=== PATIENT | female | born 1975 | race African-American/Black ===

== ENCOUNTER 2017-03-17 09:01 | Emergency (ER) | payer OTHER ==
[2017-03-17 09:14] VITALS: BP 123/79; TEMP 98.6; BMI 24.0
[2017-03-17] MEDS ORDERED: KETOROLAC TROMETHAMINE 60 MG/2 ML VIAL IM ONE (10:13)
[2017-03-17] MEDS ORDERED: KETOROLAC TROMETHAMINE 30 MG/1 ML VIAL ONE (10:14)
--- NOTE | 2017-03-17 11:08 | PDOC ---
History of Present Illness - General Chief Complaint: Back Pain Stated Complaint: BACK PAIN Time Seen by Provider: 03/17/17 09:43 History Source: Patient Exam Limitations: No Limitations - History of Present Illness Initial Comments: 03/17/17 11:09 41-year-old female presents to the ED with complaints of right upper back pain upon awakening this morning. Patient states pain is worsened with movement and does not radiate to her chest abdomen or lower back. Patient denies history of low back pain upper back pain or cervical disorders. Patient states did not take anything for pain and describes the pain as sharp and intermittent Occurred: reports: this morning Severity: reports: mild, moderate Pain Location: reports: back Method of Injury: Yes: unknown Associated Symptoms (Fall): denies symptoms Past History - Past Medical History Allergies/Adverse Reactions: Allergies Allergy/AdvReac Type Severity Reaction Status Date / Time No Known Allergies Allergy Verified 03/17/17 09:06 Home Medications: Ambulatory Orders Cyclobenzaprine HCl [Flexeril 10 mg] 5 mg PO BID PRN #12 tablet 03/17/17 Ibuprofen [Motrin -] 600 mg PO TID PRN #21 tablet 03/17/17 Other medical history: none - Psycho/Social/Smoking Cessation Hx Anxiety: No Suicidal Ideation: No Smoking History: Never smoked Have you smoked in the past 12 months: No Information on smoking cessation initiated: No Hx Alcohol Use: No Drug/Substance Use Hx: No Substance Use Type: None Patient Lives Alone: No Review of Systems - Review of Systems Able to Perform ROS?: Yes Constitutional: No: Symptoms Reported Respiratory: No: Symptoms reported Cardiac (ROS): No: Symptoms Reported Musculoskeletal: Yes: Muscle Pain (right) Integumentary: No: Symptoms Reported Neurological: No: Symptoms reported Hematologic/Lymphatic: No: Symptoms Reported *Physical Exam - Vital Signs Last Vital Signs Temp Pulse Resp BP Pulse Ox 98.6 F 57 L 18 123/79 100 03/17/17 09:08 03/17/17 09:08 03/17/17 09:08 03/17/17 09:08 03/17/17 09:08 - Physical Exam General Appearance: Yes: Nourished, Appropriately Dressed. No: Apparent Distress Musculoskeletal: positive: Muscle Spasm (rigth trapezuis). negative: CVA Tenderness, Vertebral Tenderness Integumentary: positive: Normal Color, Warm, Moist. negative: Erythema, Rash, Swelling, Ecchymosis ED Treatment Course - Medications Given in the ED: ED Medications Discontinued Medications Generic Name Dose Route Start Last Admin Trade Name Elda PRN Reason Stop Dose Admin Ketorolac Tromethamine 60 mg 03/17/17 10:13 03/17/17 10:19 Toradol Injection - IM 03/17/17 10:14 60 mg ONCE ONE Administration Medical Decision Making - Medical Decision Making 03/17/17 11:13 Patient complaining of right trapezius pain worsened with movement and deep breathing. Patient states awoke with discomfort. Patient denies any change in activity, recent travel, recent illness, or surgery. Patient other complaints at this time. Patient examined point tenderness of the right trapezius at the mid scapular line. Patient initially ordered for Toradol which she responded well with. Patient be discharged with Motrin and Flexeril. *DC/Admit/Observation/Transfer Diagnosis at time of Disposition: Trapezius muscle spasm Trapezius muscle strain Qualifiers: Encounter type: initial encounter Laterality: right Qualified Code(s): S46.811A - Strain of other muscles, fascia and tendons at shoulder and upper arm level, right arm, initial encounter - Discharge Dispostion Disposition: HOME Condition at time of disposition: Improved - Prescriptions Prescriptions: Cyclobenzaprine HCl [Flexeril 10 mg] 5 mg PO BID PRN #12 tablet PRN Reason: Back Pain Ibuprofen [Motrin -] 600 mg PO TID PRN #21 tablet PRN Reason: Pain - Referrals Referrals: Radhika Ribeiro MD [Primary Care Provider] - - Patient Instructions Printed Discharge Instructions: DI for Back Spasm Additional Instructions: Please continue to take Motrin or Flexeril at home. Apply heat to the affected area . If symptoms continue greater than 3 days consider follow-up with her PCP and/or return to ED.
[2017-03-17 11:10] VITALS: PULSE 54
== END 2017-03-17 11:16 | disposition home or self-care (01) ==
LOC: JERFT 09:01
PROC: 3E0233Z Introduction of Anti-inflammatory into Muscle, Percutaneous Approach (ICD-10-PCS; principal; 2017-03-17)
DX: S46.811A Strain of other muscles, fascia and tendons at shoulder and upper arm level, right arm, initial encounter (principal); M62.830 Muscle spasm of back; X58.XXXA Exposure to other specified factors, initial encounter; Y93.89 Activity, other specified; Y92.032 Bedroom in apartment as the place of occurrence of the external cause
CPT/HCPCS: 96372; 99281-25

== ENCOUNTER 2017-11-04 19:05 | Emergency (ER) | payer OTHER ==
[2017-11-04 19:26] VITALS: BP 125/78; PULSE 70; TEMP 98.8; BMI 26.5
[2017-11-04] MEDS ORDERED: diazePAM 5 MG TABLET PO ONE (20:04)
[2017-11-04] MEDS ORDERED: KETOROLAC TROMETHAMINE 30 MG/1 ML VIAL IM ONE (20:04)
--- NOTE | 2017-11-04 20:08 | PDOC ---
History of Present Illness - General Chief Complaint: Pain Stated Complaint: NECK PAIN Time Seen by Provider: 11/04/17 19:57 History Source: Patient Exam Limitations: No Limitations - History of Present Illness Initial Comments: 11/04/17 20:11 Is a 42-year-old woman without significant past medical history presents emergency Department with right upper back pain status post working out on 10/30. Patient states she was doing sit ups and was pulling on her neck throughout her workout that they. 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 She did trying icy hot and other topical modalities with minimal relief. Patient has been taking Motrin with moderate relief of pain. Past History - Past Medical History Allergies/Adverse Reactions: Allergies Allergy/AdvReac Type Severity Reaction Status Date / Time No Known Allergies Allergy Verified 11/04/17 19:26 Home Medications: Ambulatory Orders Cyclobenzaprine HCl [Flexeril 10 mg] 5 mg PO BID PRN #12 tablet 03/17/17 Ibuprofen [Motrin -] 600 mg PO TID PRN #21 tablet 03/17/17 Methocarbamol [Robaxin -] 1,500 mg PO Q8H #21 tablet 11/04/17 - Suicide/Smoking/Psychosocial Hx Smoking History: Never smoked Have you smoked in the past 12 months: No Information on smoking cessation initiated: No Hx Alcohol Use: No Drug/Substance Use Hx: No Substance Use Type: None Review of Systems - Review of Systems Able to Perform ROS?: Yes Is the patient limited Hungarian proficient: No Constitutional: No: Symptoms Reported HEENTM: No: Symptoms Reported Respiratory: No: Symptoms reported Cardiac (ROS): No: Symptoms Reported ABD/GI: No: Symptoms Reported : No: Symptoms Reported Musculoskeletal: Yes: See HPI Integumentary: No: Symptoms Reported Neurological: No: Symptoms reported Endocrine: No: Symptoms Reported *Physical Exam - Vital Signs Last Vital Signs Temp Pulse Resp BP Pulse Ox 98.8 F 70 18 125/78 100 11/04/17 19:22 11/04/17 19:22 11/04/17 19:22 11/04/17 19:22 11/04/17 19:22 - Physical Exam General Appearance: Yes: Appropriately Dressed. No: Apparent Distress HEENT: positive: Normal ENT Inspection Neck: positive: Trachea midline, Supple Respiratory/Chest: positive: Lungs Clear, Normal Breath Sounds. negative: Respiratory Distress, Accessory Muscle Use Cardiovascular: positive: Regular Rhythm, Regular Rate. negative: Murmur Gastrointestinal/Abdominal: positive: Normal Bowel Sounds, Soft. negative: Tender Musculoskeletal: positive: Normal Inspection, Muscle Spasm (right trapezius). negative: CVA Tenderness Extremity: positive: Normal Capillary Refill, Normal Inspection, Normal Range of Motion Integumentary: positive: Normal Color, Dry, Warm Neurologic: positive: Alert, Normal Response, Motor Strength 5/5 Medical Decision Making - Medical Decision Making 11/04/17 20:10 A/P: 42-year-old woman with right trapezius pain status post working out Palpable muscle spasm noted in the right trapezius Full active range of motion to the right shoulder Full active range of motion of the neck Toradal 30 mg IM now Valium 5 mg Discharge *DC/Admit/Observation/Transfer Diagnosis at time of Disposition: Trapezius muscle spasm - Discharge Dispostion Disposition: HOME Condition at time of disposition: Stable Admit: No - Prescriptions Prescriptions: Methocarbamol [Robaxin -] 1,500 mg PO Q8H #21 tablet - Referrals - Patient Instructions Additional Instructions: Apply warm moist heat to affected areas- warm baths are a good way to accomplish this. Take Robaxin 1500 mg 3 times a day as needed for pain. Avoid any heavy lifting or strenuous activity until symptoms resolve. Return to emergency for for worsening pain, headaches or any other concerns. Thank you very much for trismus to provide emergent care needs. - Post Discharge Activity Forms/Work/School Notes: Back to Work
[2017-11-04] MEDS ORDERED: KETOROLAC TROMETHAMINE 30 MG/1 ML VIAL ONE (20:14)
[2017-11-04] MEDS ORDERED: diazePAM 5 MG TABLET ONE (20:14)
== END 2017-11-04 20:24 | disposition home or self-care (01) ==
LOC: JERFT 19:05
PROC: 3E0233Z Introduction of Anti-inflammatory into Muscle, Percutaneous Approach (ICD-10-PCS; principal; 2017-11-04)
DX: M62.838 Other muscle spasm (principal); X50.3XXA Overexertion from repetitive movements, initial encounter; Y93.B2 Activity, push-ups, pull-ups, sit-ups; Y92.89 Other specified places as the place of occurrence of the external cause; Y99.8 Other external cause status
CPT/HCPCS: 96372; 99281-25

== ENCOUNTER 2017-11-12 18:20 | Emergency (ER) | payer OTHER ==
--- NOTE | 2017-11-12 18:39 | PDOC ---
Rapid Medical Evaluation Time Seen by Provider: 11/12/17 18:36 Medical Evaluation: Allergies Allergy/AdvReac Type Severity Reaction Status Date / Time No Known Allergies Allergy Verified 11/04/17 19:26 11/12/17 18:36 Pt c/o: rt shoulder/ neck pain over 1 week, seen here for the same, no dental or ear pain, does complain of tingling to arm intermittently Pt on brief exam: full rom, vss, tender to dital rt trapezius/shoulder Pt ordered for: rt shoulder xray Pt to proceed to the ED Discharge Disposition - Diagnosis Shoulder pain, right - Referrals - Patient Instructions - Post Discharge Activity
[2017-11-12 18:40] VITALS: BP 149/76; PULSE 73; TEMP 98; BMI 26.5
--- NOTE | 2017-11-12 19:43 | PDOC ---
History of Present Illness - History of Present Illness Initial Comments: 11/12/17 20:09 Patient is a 42F, with no significant PMHx, who returns to the ER for right shoulder pain for 2 weeks . Patient states that she was here on 10/30 because she believes she did something to her shoulder when working out and when she went to reach for her coat she felt a sudden sharp pain in her shoulder. She states that the pain is continuous, travels down her arm, and feels like pins and needles. She was given Methocarbamol 750mg but states that it did nothing to relieve the pain. She states she has tried taking ibuprofen and topical gel with temporary relief. She was told to come back if the pain persists. She also notes the pain travels to her neck as well. <Carmelina Omer - Last Filed: 11/12/17 20:09> <Maryse Davis - Last Filed: 11/13/17 10:35> - General Chief Complaint: Head/Neck problem Stated Complaint: PAIN Time Seen by Provider: 11/12/17 18:36 Past History <Carmelina Omer - Last Filed: 11/12/17 20:09> - Past Medical History COPD: No Other medical history: DENIES. - Suicide/Smoking/Psychosocial Hx Smoking History: Never smoked Have you smoked in the past 12 months: No Hx Alcohol Use: No Drug/Substance Use Hx: No Substance Use Type: None <Maryse Davis - Last Filed: 11/13/17 10:35> - Past Medical History Allergies/Adverse Reactions: Allergies Allergy/AdvReac Type Severity Reaction Status Date / Time No Known Allergies Allergy Verified 11/12/17 18:37 Home Medications: Ambulatory Orders Cyclobenzaprine HCl [Flexeril -] 10 mg PO HS #10 tablet 11/12/17 Methylprednisolone [Medrol Dose Merrill] 4 mg PO ASDIR #21 tablet 11/12/17 Review of Systems - Review of Systems Comments:: 11/12/17 20:09 GENERAL/CONSTITUTIONAL: No fever or chills. No weakness. HEAD, EYES, EARS, NOSE AND THROAT: No change in vision. No ear pain or discharge. No sore throat. GASTROINTESTINAL: No nausea, vomiting, diarrhea or constipation. GENITOURINARY: No dysuria, frequency, or change in urination. CARDIOVASCULAR: No chest pain or shortness of breath. RESPIRATORY: No cough, wheezing, or hemoptysis. MUSCULOSKELETAL: +right shoulder pain. +right sided neck pain. SKIN: No rash NEUROLOGIC: +intermittent numbness and tingling down right arm. No headache, vertigo, loss of consciousness, or change in strength/sensation. ENDOCRINE: No increased thirst. No abnormal weight change. HEMATOLOGIC/LYMPHATIC: No anemia, easy bleeding, or history of blood clots. ALLERGIC/IMMUNOLOGIC: No hives or skin allergy. <Carmelina Omer - Last Filed: 11/12/17 20:09> *Physical Exam - Vital Signs Last Vital Signs Temp Pulse Resp BP Pulse Ox 98 F 73 19 149/76 100 11/12/17 18:37 11/12/17 18:37 11/12/17 18:37 11/12/17 18:37 11/12/17 18:37 - Physical Exam Comments: 11/12/17 20:11 GENERAL: Awake, alert, and fully oriented, in no acute distress HEAD: No signs of trauma EYES: PERRLA, EOMI, sclera anicteric, conjunctiva clear ENT: Auricles normal inspection, hearing grossly normal, nares patent, oropharynx clear without exudates. Moist mucosa NECK: Normal ROM, supple, no lymphadenopathy, JVD, or masses LUNGS: Breath sounds equal, clear to auscultation bilaterally. No wheezes, and no crackles HEART: Regular rate and rhythm, normal S1 and S2, no murmurs, rubs or gallops ABDOMEN: Soft, nontender, normoactive bowel sounds. No guarding, no rebound. No masses EXTREMITIES: Negative: drop arm , empty can apprehension, speed's test. Normal range of motion, no edema. No clubbing or cyanosis. No cords, erythema, or tenderness NEUROLOGICAL: Cranial nerves II through XII grossly intact. Normal speech, normal gait SKIN: Warm, Dry, normal turgor, no rashes or lesions noted. <Carmelina Omer - Last Filed: 11/12/17 20:09> - Vital Signs Last Vital Signs Temp Pulse Resp BP Pulse Ox 98 F 73 19 149/76 100 11/12/17 18:37 11/12/17 18:37 11/12/17 18:37 11/12/17 18:37 11/12/17 18:37 <Maryse Davis - Last Filed: 11/13/17 10:35> ED Treatment Course - Medications Given in the ED: ED Medications Discontinued Medications Generic Name Dose Route Start Last Admin Trade Name Elda PRN Reason Stop Dose Admin Ketorolac Tromethamine 60 mg 11/12/17 19:44 11/12/17 19:50 Toradol Injection - IM 11/12/17 19:45 60 mg ONCE ONE Administration <Carmelina Omer - Last Filed: 11/12/17 20:09> Medical Decision Making - Medical Decision Making 11/12/17 19:47 A portion of this note was documented by scribe services under my direction. I have reviewed the details of the note, within reason, and agree with the documentation with the following case summary and management plan written by me. Pt. is a 42 y/o F who presents to the ED with continued R shoulder pain. Seen on 11/04/17. Pt. describes the pain as pins and needles that run down her arm and up to her R neck. ROM intact of R shoulder and R neck. Most likely a cervical radiculopathy. Will change medications at this time. Ortho referral given. Return precautions give. Pt. understands all d/c instructions and all questions were answered. <Maryse Davis - Last Filed: 11/13/17 10:35> *DC/Admit/Observation/Transfer - Attestations Scribe Attestion: 11/12/17 20:15 Documentation prepared by Carmelina Omer, acting as emergency medical technician for TRAY Burr. <Carmelina Omer - Last Filed: 11/12/17 20:09> - Discharge Dispostion Admit: No <Maryse Davis - Last Filed: 11/13/17 10:35> Diagnosis at time of Disposition: Cervical radicular pain Shoulder pain, right Qualifiers: Chronicity: acute Qualified Code(s): M25.511 - Pain in right shoulder - Discharge Dispostion Disposition: HOME Condition at time of disposition: Stable - Prescriptions Prescriptions: Cyclobenzaprine HCl [Flexeril -] 10 mg PO HS #10 tablet Methylprednisolone [Medrol Dose Merrill] 4 mg PO ASDIR #21 tablet - Referrals Referrals: Yinka Phillips MD [Staff Physician] - - Patient Instructions Printed Discharge Instructions: DI for Cervical Radiculopathy Additional Instructions: You have nerve pain most likely due to a muscle spasm. Please take the steroids pack as directed. Please take the Flexeril at night. Do not drive after taking this medication as it may make you sleepy. You may take ibuprofen or Tylenol as needed for additional pain. You may use heating pads and icy hot to the area to help with the pain. Please follow-up with orthopedics this week. Referral has been provided for you. Please avoid lifting heavy objects until your pain resolves. Return to the emergency department if you have worsening pain, weakness in the arm, or have any changes in your symptoms. - Post Discharge Activity Forms/Work/School Notes: Back to Work
[2017-11-12] MEDS ORDERED: KETOROLAC TROMETHAMINE 60 MG/2 ML VIAL IM ONE (19:44)
[2017-11-12] MEDS ORDERED: KETOROLAC TROMETHAMINE 60 MG/2 ML VIAL ONE (19:47)
== END 2017-11-12 19:54 | disposition home or self-care (01) ==
LOC: JERFT 18:20
PROC: 3E0233Z Introduction of Anti-inflammatory into Muscle, Percutaneous Approach (ICD-10-PCS; principal; 2017-11-12)
DX: M54.12 Radiculopathy, cervical region (principal)
CPT/HCPCS: 73030-TC-RT-FY; 96372; 99281-25

== ENCOUNTER 2017-12-26 18:25 | Emergency (ER) | payer OTHER ==
[2017-12-26 18:30] VITALS: BP 119/79; PULSE 68; TEMP 98.1; BMI 27.4
--- NOTE | 2017-12-26 19:11 | PDOC ---
History of Present Illness - General Chief Complaint: Pain Stated Complaint: PAIN Time Seen by Provider: 12/26/17 18:37 History Source: Patient Exam Limitations: No Limitations - History of Present Illness Initial Comments: 12/26/17 19:27 Chief complaint: Neck and shoulder pain Patient is a healthy 42-year-old female who was seen in the ER 3 times in October for similar complaints of right shoulder and neck pain. She was treated, had an x-ray and followed up with orthopedist. Patient states it was better and now has gotten worse and came to the ER because she can't sleep at night. She has an appointment with the orthopedist on Saturday. She continues to have on and off numbness and tingling none now. 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 GENERAL/CONSTITUTIONAL: No fever, weakness. dizziness HEAD, EYES, EARS, NOSE AND THROAT: No change in vision. No ear pain or discharge. No sore throat. CARDIOVASCULAR: No chest pain RESPIRATORY: No shortness of breath or cough GASTROINTESTINAL: No pain, nausea, vomiting, diarrhea or constipation GENITOURINARY: No dysuria MUSCULOSKELETAL: No neck or back pain SKIN: No rash NEUROLOGIC: No headache, vertigo, loss of consciousness, or loss of sensation. GENERAL: The patient is awake, alert, and fully oriented, in no acute distress. HEAD: Normal with no signs of trauma. EYES: Pupils equal, round and reactive to light, sclera anicteric, conjunctiva clear. ENT: pharynx: no erythema, no exudate, uvula midline NECK: supple CHEST: clear, nontender, rr ABD: soft, nontender EXTREMITIES: Normal range of motion, no edema. NEURO: Mental status: The patient is oriented x3. Cranial nerves: Cranial nerves II through XII are intact Motor: The upper extremities are 5 over 5 in all muscle groups. The lower extremities are 5 over 5 in all muscle groups. Sensation: Sensation is intact to light touch throughout. Cerebellar: [id number] is normal in both upper extremities. Heel-knee- rogers is normal in both lower extremities. Gait: Normal.Tandem gait is normal. SKIN: Warm, Dry Past History - Past Medical History Allergies/Adverse Reactions: Allergies Allergy/AdvReac Type Severity Reaction Status Date / Time No Known Allergies Allergy Verified 12/26/17 18:26 Home Medications: Ambulatory Orders Meloxicam [Mobic] 15 mg PO DAILY #14 tablet 12/26/17 Oxycodone HCl/Acetaminophen [Percocet 5-325 mg Tablet] 1 tab PO Q6H #20 tablet MDD 4 12/26/17 COPD: No DVT: No - Suicide/Smoking/Psychosocial Hx Smoking History: Never smoked Have you smoked in the past 12 months: No Information on smoking cessation initiated: No Hx Alcohol Use: No Drug/Substance Use Hx: No Substance Use Type: None *Physical Exam - Vital Signs Last Vital Signs Temp Pulse Resp BP Pulse Ox 98.1 F 68 18 119/79 100 12/26/17 18:27 12/26/17 18:27 12/26/17 18:27 12/26/17 18:27 12/26/17 18:27 Medical Decision Making - Medical Decision Making 12/26/17 19:29 42-year-old female with no significant medical problems with ongoing issues with cervical radiculopathy. Patient had x-ray prior. Had gotten worse. Strength and sensation is intact in both upper extremities she has pain when she tries to lift the arm more than 90. She also had a shoulder x-ray prior. No indication for further workup or imaging. Patient has appointment with orthopedist on Saturday. She has had Robaxin, Flexeril and steroids prior. Will give mold back and a few Percocet since patient is having great difficulty sleeping. Patient was also told to avoid lifting and to also evaluate her pillows and sleeping and how that possibly is contributing. *DC/Admit/Observation/Transfer Diagnosis at time of Disposition: Cervical radicular pain - Discharge Dispostion Disposition: HOME Condition at time of disposition: Stable Decision to Admit order: No - Prescriptions Prescriptions: Meloxicam [Mobic] 15 mg PO DAILY #14 tablet Oxycodone HCl/Acetaminophen [Percocet 5-325 mg Tablet] 1 tab PO Q6H #20 tablet MDD 4 - Referrals Referrals: Ynika Phillips MD [Staff Physician] - - Patient Instructions Printed Discharge Instructions: DI for Cervical Radiculopathy Additional Instructions: No heavy lifting or bending Apply ice to the area 20 minutes every 2 hours for the next 2 days take meloxicam 15 mg once daily for pain. If still in pain he can also take Percocet one to 2 tablets every 6 hours. the percocet is best taken at night before sleep Return to the nearest ER if numbness, weakness, severe pain, problems with urinating or having bowel movements. Call orthopedist today for an appointment for further evaluation - Post Discharge Activity
== END 2017-12-26 19:22 | disposition home or self-care (01) ==
LOC: JERFT 18:25
DX: M54.12 Radiculopathy, cervical region (principal)
CPT/HCPCS: 99281-25

== ENCOUNTER 2018-06-13 14:57 | Emergency (ER) | payer OTHER ==
[2018-06-13] MEDS ORDERED: TETANUS AND DIPHTHERIA TOXOID 0.5 ML DISP.SYRIN IM ONE (15:27)
[2018-06-13 15:29] VITALS: BP 116/70; PULSE 77; TEMP 98.6; BMI 25.6
--- NOTE | 2018-06-13 15:29 | PDOC ---
Rapid Medical Evaluation Chief Complaint: Pain Time Seen by Provider: 06/13/18 15:24 Medical Evaluation: Allergies Allergy/AdvReac Type Severity Reaction Status Date / Time No Known Allergies Allergy Verified 12/26/17 18:26 06/13/18 15:26 43 year old female lefy 5th finger nail caught in the door and nail lifted of the nail bed. last tetanus unknown Pe: left 5th finger nail with minimal bleeding A: nail avulsion P: patient to fast track for further management of care/ Discharge Disposition - Diagnosis Nail avulsion, finger Qualifiers: Encounter type: initial encounter Qualified Code(s): S61.309A - Unspecified open wound of unspecified finger with damage to nail, initial encounter - Referrals - Patient Instructions - Post Discharge Activity
[2018-06-13] MEDS ORDERED: DIPHTH,PERTUSS(ACELL),TET 0.5 ML DISP.SYRIN IM ONE (16:23)
--- NOTE | 2018-06-13 16:27 | PDOC ---
History of Present Illness - General Chief Complaint: Injury Stated Complaint: FINGER INJURY Time Seen by Provider: 06/13/18 15:24 History Source: Patient Exam Limitations: No Limitations - History of Present Illness Initial Comments: 06/13/18 16:24 pt jammed her left pinky fingernail in a door today, bending back the artificial nail. Past History - Past Medical History Allergies/Adverse Reactions: Allergies Allergy/AdvReac Type Severity Reaction Status Date / Time No Known Allergies Allergy Verified 06/13/18 15:24 Home Medications: Ambulatory Orders NK [No Known Home Medication] 06/13/18 COPD: No DVT: No Other medical history: DENIES. - Surgical History Abdominal Surgery: Yes (HERNIA REPAIR X2) - Suicide/Smoking/Psychosocial Hx Smoking History: Never smoked Have you smoked in the past 12 months: No Hx Alcohol Use: No Drug/Substance Use Hx: No Substance Use Type: None Review of Systems - Review of Systems Able to Perform ROS?: Yes Is the patient limited Marshallese proficient: No Integumentary: Yes: Symptoms Reported *Physical Exam - Vital Signs Last Vital Signs Temp Pulse Resp BP Pulse Ox 98.6 F 77 19 116/70 98 06/13/18 15:25 06/13/18 15:25 06/13/18 15:25 06/13/18 15:25 06/13/18 15:25 - Physical Exam General Appearance: Yes: Nourished, Appropriately Dressed HEENT: positive: EOMI, AB Neck: positive: Supple. negative: Tender Respiratory/Chest: positive: Lungs Clear, Normal Breath Sounds. negative: Chest Tender Cardiovascular: positive: Regular Rhythm, Regular Rate Extremity: positive: Normal Capillary Refill, Normal Inspection, Tender (left 5th digit with articial nail intact, dried blood under the nail, cuticle is intact no bleeding ) Integumentary: positive: Normal Color, Dry, Warm Neurologic: positive: Fully Oriented, Alert, Normal Mood/Affect, Normal Response , Motor Strength 5/5 Procedures - Additional Procedures Additional Procedures: other (finger soaked in betadine, bulky finger wrap placed) *DC/Admit/Observation/Transfer Diagnosis at time of Disposition: Nail avulsion, finger Qualifiers: Encounter type: initial encounter Qualified Code(s): S61.309A - Unspecified open wound of unspecified finger with damage to nail, initial encounter - Discharge Dispostion Disposition: HOME Condition at time of disposition: Good - Referrals - Patient Instructions Additional Instructions: keep covered, trim the nail do not remove the nail it will fall off on its own no more artificial nails until healed take motrin for pain(over the counter ibuprofen, motrin or advil) - Post Discharge Activity
== END 2018-06-13 16:48 | disposition home or self-care (01) ==
LOC: JERFT 14:57
PROC: 3E0234Z Introduction of Serum, Toxoid and Vaccine into Muscle, Percutaneous Approach (ICD-10-PCS; principal; 2018-06-13)
DX: S61.307A Unspecified open wound of left little finger with damage to nail, initial encounter (principal); W22.8XXA Striking against or struck by other objects, initial encounter; Y93.89 Activity, other specified; Y92.89 Other specified places as the place of occurrence of the external cause
CPT/HCPCS: 90471; 90715; 99281-25

== ENCOUNTER 2020-08-07 13:03 | Emergency (ER) | payer OTHER ==
[2020-08-07 13:14] VITALS: BP 122/74; PULSE 61; TEMP 97; BMI 27.4
[2020-08-07] MEDS ORDERED: IBUPROFEN 600 MG TABLET (FP) PO ONE ×2 (14:07→14:09)
[2020-08-07 14:51] LABS: BASO % 0.7 % (0-2.0); EOS % 2.9 % (0-4.5); HEMATOCRIT 35.3 % (32.4-45.2); HEMOGLOBIN 11.5 GM/dL (10.7-15.3); LYMPH % 36.5 % (8-40); MCHC 32.5 g/dl (32.0-36.0); MONO % 8.3 % (3.8-10.2); NEUT % 51.6 % (42.8-82.8); PLATELET COUNT 270 K/MM3 (134-434); RBC 4.25 M/mm3 (3.60-5.2); RDW 17.1 % (11.6-15.6); WHITE BLOOD COUNT 5.7 K/mm3 (4.0-10.0)
[2020-08-07 15:17] LABS: ALBUMIN 3.5 g/dl (3.4-5.0); BLOOD UREA NITROGEN 9.4 mg/dL (7-18); CALCIUM 8.7 mg/dL (8.5-10.1)
[2020-08-07 15:21] LABS: CREATININE 1.1 mg/dL (0.55-1.3)
[2020-08-07 15:22] LABS: BILIRUBIN,TOTAL 0.3 mg/dL (0.2-1); TOT PROT 7.8 g/dl (6.4-8.2)
== END 2020-08-07 15:56 | disposition home or self-care (01) ==
LOC: JERFT 13:03
DX: R59.9 Enlarged lymph nodes, unspecified (principal)
CPT/HCPCS: 36415; 76536-TC; 80053; 85025; 99284-25

== ENCOUNTER 2021-01-21 04:32 | Emergency (ER) | payer OTHER ==
[2021-01-21 04:46] VITALS: BP 127/78; PULSE 71; TEMP 98.2; BMI 26.2
[2021-01-21] MEDS ORDERED: SODIUM CHLORIDE 0.9% 500 ML INFUS.BAG IV ONE (05:13)
[2021-01-21] MEDS ORDERED: morphine SULFATE 4 MG/ML VIAL IVPUSH ONE (05:13)
[2021-01-21] MEDS ORDERED: morphine SULFATE 4 MG/ML VIAL ONE (05:22)
[2021-01-21 05:53] LABS: BASO % 0.2 % (0-2.0); EOS % 0.8 % (0-4.5); HEMATOCRIT 35.9 % (32.4-45.2); HEMOGLOBIN 11.8 GM/dL (10.7-15.3); LYMPH % 15.4 % (8-40); MCH 26.2 pg (25.7-33.7); MCHC 32.9 g/dl (32.0-36.0); MEAN CELL VOLUME 79.8 fl (80-96); MEAN PLT VOLUME 8.9 fl (7.5-11.1); MONO % 5.3 % (3.8-10.2); NEUT % 78.3 % (42.8-82.8); PLATELET COUNT 252 10^3/uL (134-434); RDW 17.8 % (11.6-15.6); WHITE BLOOD COUNT 6.9 K/mm3 (4.0-10.0)
[2021-01-21 06:12] LABS: CHLORIDE 105 mmol/L (98-107); SODIUM 139 mmol/L (136-145)
[2021-01-21 06:14] LABS: ALBUMIN 3.8 g/dl (3.4-5.0); ANION GAP 7 MMOL/L (8-16); BLOOD UREA NITROGEN 15.6 mg/dL (7-18); CALCIUM 9.1 mg/dL (8.5-10.1); CO2 26 mmol/L (21-32); GLUCOSE,RANDOM 107 mg/dL (74-106); LIPASE 131 U/L (73-393)
[2021-01-21 06:17] LABS: CREATININE 0.9 mg/dL (0.55-1.3); SGOT/AST 21 U/L (15-37); SGPT/ALT 20 U/L (13-61)
[2021-01-21 06:19] LABS: BILIRUBIN,TOTAL 0.2 mg/dL (0.2-1); TOT PROT 7.9 g/dl (6.4-8.2)
[2021-01-21 06:20] LABS: ALK PHOS 68 U/L (45-117)
[2021-01-21] MEDS ORDERED: FAMOTIDINE 20 MG/50 ML IVPB 20 MG/50 ML MG IVPB ONE ×2 (06:38→06:42)
[2021-01-21] MEDS ORDERED: MAG HYDROX/AL HYDROX/SIMETH 30 ML UNIT-DOSE CUP PO ONE (06:38)
[2021-01-21] MEDS ORDERED: MAG HYDROX/AL HYDROX/SIMETH 30 ML UNIT-DOSE CUP ONE (06:42)
[2021-01-21 08:29] LABS: EPI CELLS 9 /uL (0-25.1); HYALINE CASTS 0 /uL (0-3.1); PH,URINE 7.5 (5.0-8.0); URINE APPEARANCE CLEAR; URINE BACTERIA 337 /uL (0-1359); URINE BILIRUBIN NEGATIVE (NEGATIVE); URINE COLOR YELLOW; URINE GLUCOSE (UA) NEGATIVE (NEGATIVE); URINE KETONE NEGATIVE (NEGATIVE); URINE LEUK ESTERASE 1+ (NEGATIVE); URINE NITRITE NEGATIVE (NEGATIVE); URINE PROTEIN NEGATIVE (NEGATIVE); URINE RBC 11 /uL (0-23.9); URINE UROBILINOGEN 0.2 mg/dL (0.2-1.0); URINE WBC 19 /uL (0-25.8)
== END 2021-01-21 10:24 | disposition home or self-care (01) ==
LOC: JER 04:32
PROC: 3E033NZ Introduction of Analgesics, Hypnotics, Sedatives into Peripheral Vein, Percutaneous Approach (ICD-10-PCS; principal; 2021-01-21)
PROC: 3E033GC Introduction of Other Therapeutic Substance into Peripheral Vein, Percutaneous Approach (ICD-10-PCS; 2021-01-21)
DX: K81.0 Acute cholecystitis (principal)
CPT/HCPCS: 36415; 71046-TC-FY; 76705-TC; 80053; 81003; 83605; 83690; 84484; 85025; 87086; 93005; 93010; 99285-25

== ENCOUNTER 2021-01-27 01:21 | Emergency (ER) | payer OTHER ==
[2021-01-27] MEDS ORDERED: morphine CARPU-JECT 2 MG/1 ML DISP.SYRIN IVPUSH ONE (01:45)
[2021-01-27 01:47] VITALS: BMI 26.2
[2021-01-27] MEDS ORDERED: MAG HYDROX/AL HYDROX/SIMETH -MYLANTA- ORAL SUSPENSION PO ONE (02:03)
[2021-01-27] MEDS ORDERED: FAMOTIDINE 20 MG/50 ML IVPB 20 MG/50 ML MG IVPB ONE ×2 (02:03→02:21)
[2021-01-27] MEDS ORDERED: MORPHINE SULFATE 2 MG/ML VIAL ONE (02:20)
[2021-01-27] MEDS ORDERED: MAG HYDROX/AL HYDROX/SIMETH 30 ML UNIT-DOSE CUP ONE (02:21)
[2021-01-27 03:06] LABS: BASO % 0.4 % (0-2.0); EOS % 4.5 % (0-4.5); HEMATOCRIT 34.9 % (32.4-45.2); HEMOGLOBIN 11.4 GM/dL (10.7-15.3); LYMPH % 37.4 % (8-40); MCH 26.1 pg (25.7-33.7); MCHC 32.5 g/dl (32.0-36.0); MEAN CELL VOLUME 80.2 fl (80-96); MEAN PLT VOLUME 8.8 fl (7.5-11.1); MONO % 10.4 % (3.8-10.2); NEUT % 47.3 % (42.8-82.8); PLATELET COUNT 214 10^3/uL (134-434); RBC 4.36 M/mm3 (3.60-5.2); WHITE BLOOD COUNT 4.8 K/mm3 (4.0-10.0)
[2021-01-27 03:11] LABS: INR 1.12 (0.83-1.09); PROTHROMBIN TIME (PATIENT) 13.7 SEC (9.7-13.0)
[2021-01-27 03:14] LABS: ACTIVATED PTT 26.1 SECONDS (25.2-36.5); CHLORIDE 105 mmol/L (98-107); SODIUM 137 mmol/L (136-145)
[2021-01-27 03:17] LABS: ANION GAP 6 MMOL/L (8-16); BLOOD UREA NITROGEN 9.3 mg/dL (7-18); CALCIUM 8.3 mg/dL (8.5-10.1); CO2 26 mmol/L (21-32); GLUCOSE,RANDOM 76 mg/dL (74-106); LIPASE 143 U/L (73-393)
[2021-01-27 03:18] LABS: ALBUMIN 3.3 g/dl (3.4-5.0)
[2021-01-27 03:20] LABS: SGOT/AST 22 U/L (15-37); SGPT/ALT 20 U/L (13-61)
[2021-01-27 03:22] LABS: BILIRUBIN,TOTAL 0.3 mg/dL (0.2-1); TOT PROT 7.1 g/dl (6.4-8.2)
[2021-01-27 03:23] LABS: ALK PHOS 62 U/L (45-117)
[2021-01-27 03:54] LABS: CREATININE 0.8 mg/dL (0.55-1.3)
[2021-01-27 04:51] VITALS: BP 128/87; PULSE 60; TEMP 98.1
[2021-01-27] MEDS ORDERED: KETOROLAC TROMETHAMINE 15 MG/ML VIAL IVPUSH ONE (04:59)
[2021-01-27] MEDS ORDERED: KETOROLAC TROMETHAMINE 15 MG/ML VIAL ONE (05:00)
[2021-01-27] MEDS ORDERED: ONDANSETRON 4 MG/2 ML VIAL IVPUSH ONE (05:03)
[2021-01-27] MEDS ORDERED: SODIUM CHLORIDE 0.9% 500 ML INFUS.BAG IV ONE (05:03)
[2021-01-27] MEDS ORDERED: ONDANSETRON 4 MG/2 ML VIAL ONE (05:04)
[2021-01-27 07:56] LABS: PH,URINE 5.5 (5.0-8.0); URINE APPEARANCE Clear; URINE BILIRUBIN Negative (NEGATIVE); URINE COLOR Yellow; URINE GLUCOSE (UA) Negative (NEGATIVE); URINE KETONE Negative (NEGATIVE); URINE LEUK ESTERASE Trace (NEGATIVE); URINE NITRITE Negative (NEGATIVE); URINE PROTEIN Negative (NEGATIVE); URINE UROBILINOGEN 0.2 mg/dL (0.2-1.0)
== END 2021-01-27 06:46 | disposition home or self-care (01) ==
LOC: JER 01:21
PROC: 3E033GC Introduction of Other Therapeutic Substance into Peripheral Vein, Percutaneous Approach (ICD-10-PCS; principal; 2021-01-27)
DX: R10.13 Epigastric pain (principal)
CPT/HCPCS: 36415; 71045-TC-FY; 74176-TC; 76705-TC; 80053; 81003; 82550; 82553; 83690; 84484; 84703; 85025; 85610; 85730; 86850; 86900; 86901; 87086; 93005; 93010; 99285-25

== ENCOUNTER 2022-06-22 07:14 | Emergency (ER) | payer OTHER ==
[2022-06-22 07:24] VITALS: BP 122/84; PULSE 71; RESP 18; TEMP 99; BMI 28.3
[2022-06-22] MEDS ORDERED: KETOROLAC TROMETHAMINE 30 MG/1 ML VIAL IM ONE (07:52)
[2022-06-22] MEDS ORDERED: METHOCARBAMOL 500 MG TABLET PO ONE (07:52)
[2022-06-22] MEDS ORDERED: KETOROLAC TROMETHAMINE 30 MG/1 ML VIAL ONE (08:00)
[2022-06-22] MEDS ORDERED: METHOCARBAMOL 500 MG TABLET ONE (08:00)
== END 2022-06-22 08:06 | disposition home or self-care (01) ==
LOC: JER 07:14 → JERFT 07:14
PROC: 3E023GC Introduction of Other Therapeutic Substance into Muscle, Percutaneous Approach (ICD-10-PCS; principal; 2022-06-22)
DX: M79.18 Myalgia, other site (principal)
CPT/HCPCS: 99284-25

== ENCOUNTER 2022-07-21 15:01 | Emergency (ER) | payer OTHER ==
[2022-07-21 15:12] VITALS: BP 105/67; PULSE 83; RESP 18; TEMP 98.6; BMI 28.3
[2022-07-21] MEDS ORDERED: ONDANSETRON 4 MG/2 ML VIAL IVPUSH ONE (15:48)
[2022-07-21] MEDS ORDERED: ACETAMINOPHEN 1000 MG/100 ML BAG IVPB ONE (15:48)
[2022-07-21] MEDS ORDERED: PANTOPRAZOLE SODIUM 40 MG in SODIUM CHLORIDE 100 ML IVPB ONE (15:48)
[2022-07-21] MEDS ORDERED: SODIUM CHLORIDE 1,000 ML IV STA (15:48)
[2022-07-21] MEDS ORDERED: PANTOPRAZOLE SODIUM 40 MG/100 ML BAG IVPB ONE (16:04)
[2022-07-21] MEDS ORDERED: ACETAMINOPHEN INJECTION 100 ML IVPB ONE (16:04)
[2022-07-21] MEDS ORDERED: ONDANSETRON 4 MG/2 ML VIAL ONE (16:04)
[2022-07-21 16:17] LABS: BASO % 0.2 % (0-2.0); EOS % 0.8 % (0-4.5); HEMOGLOBIN 12.9 GM/dL (10.7-15.3); LYMPH % 9.7 % (8-40); MCHC 32.2 g/dl (32.0-36.0); MEAN CELL VOLUME 80.9 fl (80-96); MONO % 3.8 % (3.8-10.2); NEUT % 85.5 % (42.8-82.8); PLATELET COUNT 242 10^3/uL (134-434); RBC 4.94 M/mm3 (3.60-5.2); RDW 17.1 % (11.6-15.6); WHITE BLOOD COUNT 6.6 K/mm3 (4.0-10.0)
[2022-07-21 16:34] LABS: ALBUMIN 3.6 g/dl (3.4-5.0); BLOOD UREA NITROGEN 10.1 mg/dL (7-18)
[2022-07-21 16:38] LABS: BILIRUBIN,TOTAL 0.6 mg/dL (0.2-1); TOT PROT 8.1 g/dl (6.4-8.2)
[2022-07-21 16:45] LABS: EPI CELLS >36 /uL (0-25.1); HCG,QUALITATIVE URINE Negative; HYALINE CASTS 0 /uL (0-3.1); URINE APPEARANCE CLEAR; URINE BACTERIA 1390 /uL (0-1359); URINE BILIRUBIN NEGATIVE (NEGATIVE); URINE COLOR YELLOW; URINE GLUCOSE (UA) NEGATIVE (NEGATIVE); URINE KETONE NEGATIVE (NEGATIVE); URINE LEUK ESTERASE TRACE (NEGATIVE); URINE NITRITE NEGATIVE (NEGATIVE); URINE PROTEIN NEGATIVE (NEGATIVE); URINE UROBILINOGEN 0.2 mg/dL (0.2-1.0); URINE WBC 43 /uL (0-25.8)
[2022-07-21] MEDS ORDERED: MAG HYDROX/AL HYDROX/SIMETH 30 ML UNIT-DOSE CUP PO ONE (17:30)
[2022-07-21] MEDS ORDERED: MAG HYDROX/AL HYDROX/SIMETH 30 ML UNIT-DOSE CUP ONE (17:35)
[2022-07-21 17:36] LABS: URINE RBC 26 /uL (0-23.9)
== END 2022-07-21 18:04 | disposition home or self-care (01) ==
LOC: JER 15:01
PROC: 3E0333Z Introduction of Anti-inflammatory into Peripheral Vein, Percutaneous Approach (ICD-10-PCS; principal; 2022-07-21)
PROC: 3E033GC Introduction of Other Therapeutic Substance into Peripheral Vein, Percutaneous Approach (ICD-10-PCS; 2022-07-21)
PROC: 3E033GC Introduction of Other Therapeutic Substance into Peripheral Vein, Percutaneous Approach (ICD-10-PCS; 2022-07-21)
PROC: 3E0337Z Introduction of Electrolytic and Water Balance Substance into Peripheral Vein, Percutaneous Approach (ICD-10-PCS; 2022-07-21)
DX: K29.70 Gastritis, unspecified, without bleeding (principal)
CPT/HCPCS: 0241U-QW; 36415; 80053; 81003; 83690; 84484; 84703; 85025; 93005; 93010; 99284-25

== ENCOUNTER 2022-10-06 09:52 | Emergency (ER) | payer OTHER ==
[2022-10-06 10:30] VITALS: RESP 18; TEMP 98.7; BMI 29.2
[2022-10-06] MEDS ORDERED: FAMOTIDINE 20 MG/50 ML IVPB 20 MG/50 ML MG IVPB ONE ×2 (10:48→10:50)
[2022-10-06] MEDS ORDERED: ONDANSETRON 4 MG/2 ML VIAL IVPUSH ONE (10:48)
[2022-10-06] MEDS ORDERED: SODIUM CHLORIDE 1,000 ML IV STA (10:48)
[2022-10-06] MEDS ORDERED: MAG HYDROX/AL HYDROX/SIMETH -MYLANTA- ORAL SUSPENSION PO ONE (10:48)
[2022-10-06] MEDS ORDERED: ONDANSETRON 4 MG/2 ML VIAL ONE (10:50)
[2022-10-06] MEDS ORDERED: MAG HYDROX/AL HYDROX/SIMETH 30 ML UNIT-DOSE CUP ONE (10:50)
[2022-10-06 11:26] LABS: BASO % 0.5 % (0-2.0); EOS % 1.4 % (0-4.5); HEMATOCRIT 36.1 % (32.4-45.2); HEMOGLOBIN 11.9 GM/dL (10.7-15.3); LYMPH % 14.2 % (8-40); MCH 26.5 pg (25.7-33.7); MCHC 32.9 g/dl (32.0-36.0); MEAN CELL VOLUME 80.6 fl (80-96); MEAN PLT VOLUME 9.2 fl (7.5-11.1); MONO % 8.6 % (3.8-10.2); NEUT % 75.3 % (42.8-82.8); PLATELET COUNT 222 10^3/uL (134-434); RBC 4.47 M/mm3 (3.60-5.2); RDW 17.7 % (11.6-15.6); WHITE BLOOD COUNT 4.5 K/mm3 (4.0-10.0)
[2022-10-06 11:48] LABS: CALCIUM 8.7 mg/dL (8.5-10.1)
[2022-10-06 11:49] LABS: ALBUMIN 3.2 g/dl (3.4-5.0); BLOOD UREA NITROGEN 12.1 mg/dL (7-18)
[2022-10-06 11:53] LABS: TOT PROT 7.3 g/dl (6.4-8.2)
[2022-10-06 11:54] LABS: BILIRUBIN,TOTAL 0.4 mg/dL (0.2-1)
[2022-10-06 12:28] LABS: URINE APPEARANCE CLEAR; URINE BILIRUBIN NEGATIVE (NEGATIVE); URINE COLOR YELLOW; URINE GLUCOSE (UA) NEGATIVE (NEGATIVE); URINE KETONE NEGATIVE (NEGATIVE); URINE LEUK ESTERASE NEGATIVE (NEGATIVE); URINE NITRITE NEGATIVE (NEGATIVE); URINE PROTEIN NEGATIVE (NEGATIVE); URINE UROBILINOGEN 0.2 mg/dL (0.2-1.0)
[2022-10-06 12:31] LABS: HCG,QUALITATIVE URINE Negative
[2022-10-06 13:26] VITALS: BP 99/65; PULSE 69
== END 2022-10-06 13:47 | disposition home or self-care (01) ==
LOC: JER 09:52
PROC: 3E033GC Introduction of Other Therapeutic Substance into Peripheral Vein, Percutaneous Approach (ICD-10-PCS; principal; 2022-10-06)
PROC: 3E033GC Introduction of Other Therapeutic Substance into Peripheral Vein, Percutaneous Approach (ICD-10-PCS; 2022-10-06)
PROC: 3E0337Z Introduction of Electrolytic and Water Balance Substance into Peripheral Vein, Percutaneous Approach (ICD-10-PCS; 2022-10-06)
DX: K29.50 Unspecified chronic gastritis without bleeding (principal); K21.9 Gastro-esophageal reflux disease without esophagitis; R19.7 Diarrhea, unspecified
CPT/HCPCS: 36415; 76705-TC; 80053; 81003; 83690; 84703; 85025; 87086; 99284-25

== ENCOUNTER 2023-06-17 18:18 | Emergency (ER) | payer OTHER ==
[2023-06-17 18:24] VITALS: TEMP 97.9; BMI 26.5
[2023-06-17] MEDS ORDERED: FAMOTIDINE 20 MG/50 ML IVPB 20 MG/50 ML MG IVPB ONE ×2 (20:10→20:25)
[2023-06-17] MEDS ORDERED: ACETAMINOPHEN 1000 MG/100 ML BAG IVPB ONE (20:10)
[2023-06-17] MEDS ORDERED: ONDANSETRON 4 MG/2 ML VIAL IVPUSH ONE (20:11)
[2023-06-17] MEDS ORDERED: ACETAMINOPHEN INJECTION 100 ML IVPB ONE (20:25)
[2023-06-17] MEDS ORDERED: ONDANSETRON 4 MG/2 ML VIAL ONE (20:25)
[2023-06-17 21:03] LABS: EOS % 2.6 % (0-4.5); HEMATOCRIT 34.4 % (32.4-45.2); HEMOGLOBIN 11.3 GM/dL (10.7-15.3); LYMPH % 48.3 % (8-40); MCH 26.6 pg (25.7-33.7); MCHC 32.9 g/dl (32.0-36.0); MEAN CELL VOLUME 80.8 fl (80-96); MEAN PLT VOLUME 8.3 fl (7.5-11.1); MONO % 8.2 % (3.8-10.2); NEUT % 39.9 % (42.8-82.8); PLATELET COUNT 261 10^3/uL (134-434); RBC 4.25 M/mm3 (3.60-5.2); RDW 16.6 % (11.6-15.6); WHITE BLOOD COUNT 5.4 K/mm3 (4.0-10.0)
[2023-06-17 21:22] LABS: POTASSIUM 4.3 mmol/L (3.5-5.1)
[2023-06-17 21:25] LABS: ALBUMIN 3.4 g/dl (3.4-5.0); BLOOD UREA NITROGEN 14.7 mg/dL (7-18); CALCIUM 8.5 mg/dL (8.5-10.1)
[2023-06-17 21:26] LABS: EPI CELLS 6 /uL (0-25.1); HYALINE CASTS 0 /uL (0-3.1); URINE APPEARANCE CLEAR; URINE BACTERIA 112 /uL (0-1359); URINE BILIRUBIN NEGATIVE (NEGATIVE); URINE COLOR YELLOW; URINE GLUCOSE (UA) NEGATIVE (NEGATIVE); URINE KETONE NEGATIVE (NEGATIVE); URINE LEUK ESTERASE TRACE (NEGATIVE); URINE NITRITE NEGATIVE (NEGATIVE); URINE PROTEIN NEGATIVE (NEGATIVE); URINE RBC 17 /uL (0-23.9); URINE UROBILINOGEN 0.2 mg/dL (0.2-1.0); URINE WBC 19 /uL (0-25.8)
[2023-06-17 21:28] LABS: CREATININE 0.8 mg/dL (0.55-1.3)
[2023-06-17 21:29] LABS: TOT PROT 7.4 g/dl (6.4-8.2)
[2023-06-17 21:31] LABS: BILIRUBIN,TOTAL 0.2 mg/dL (0.2-1)
[2023-06-17 22:10] VITALS: BP 128/77; PULSE 53; RESP 16
== END 2023-06-17 22:10 | disposition home or self-care (01) ==
LOC: JER 18:18
PROC: 3E033GC Introduction of Other Therapeutic Substance into Peripheral Vein, Percutaneous Approach (ICD-10-PCS; principal; 2023-06-17)
PROC: 3E033GC Introduction of Other Therapeutic Substance into Peripheral Vein, Percutaneous Approach (ICD-10-PCS; 2023-06-17)
PROC: 3E033GC Introduction of Other Therapeutic Substance into Peripheral Vein, Percutaneous Approach (ICD-10-PCS; 2023-06-17)
DX: R10.9 Unspecified abdominal pain (principal); R11.0 Nausea; K21.9 Gastro-esophageal reflux disease without esophagitis
CPT/HCPCS: 36415; 76705-TC; 80053; 81003; 83690; 84484; 85025; 87086; 93005; 93010; 99285-25

== ENCOUNTER 2023-08-01 01:02 | Emergency (ER) | payer OTHER ==
[2023-08-01 01:27] VITALS: BP 115/65; PULSE 89; RESP 20; TEMP 98.8; BMI 27.4
[2023-08-01] MEDS ORDERED: predniSONE 20 MG TABLET (UD) PO ONE (02:00)
[2023-08-01] MEDS ORDERED: predniSONE 10 MG TABLET (UD) ONE (02:11)
[2023-08-01] MEDS ORDERED: predniSONE 20 MG TABLET (UD) ONE (02:11)
[2023-08-01] MEDS: ALBUTEROL SO4 2.5/IPRATROPIUM 0.5 INH SOL 3 ML VIAL.NEB. NEB SCH ×3 (02:19→03:27)
== END 2023-08-01 04:45 | disposition home or self-care (01) ==
LOC: JER 01:02
PROC: 3E0F7GC Introduction of Other Therapeutic Substance into Respiratory Tract, Via Natural or Artificial Opening (ICD-10-PCS; principal; 2023-08-01)
DX: J45.909 Unspecified asthma, uncomplicated (principal); R05.9 Cough, unspecified; Z20.822 Contact with and (suspected) exposure to COVID-19
CPT/HCPCS: 0241U-QW; 71046-TC-FY; 93005; 93010; 99285-25

== ENCOUNTER 2023-08-10 10:50 | Emergency (ER) | payer OTHER ==
[2023-08-10 10:59] VITALS: BMI 27.4
[2023-08-10] MEDS ORDERED: ONDANSETRON 4 MG/2 ML VIAL IVPUSH ONE (11:41)
[2023-08-10] MEDS ORDERED: SODIUM CHLORIDE 1,000 ML IV STA (11:41)
[2023-08-10] MEDS ORDERED: ACETAMINOPHEN 1000 MG/100 ML BAG IVPB ONE (11:41)
[2023-08-10] MEDS ORDERED: FAMOTIDINE 20 MG/50 ML IVPB 20 MG/50 ML MG IVPB ONE ×2 (11:41→12:00)
[2023-08-10] MEDS ORDERED: ACETAMINOPHEN INJECTION 100 ML IVPB ONE (11:59)
[2023-08-10] MEDS ORDERED: ONDANSETRON 4 MG/2 ML VIAL ONE (12:00)
[2023-08-10 12:43] LABS: POTASSIUM 3.9 mmol/L (3.5-5.1)
[2023-08-10 12:44] LABS: BASO % 0.3 % (0-2.0); EOS % 0.5 % (0-4.5); HEMATOCRIT 36.9 % (32.4-45.2); HEMOGLOBIN 11.9 GM/dL (10.7-15.3); LYMPH % 5.4 % (8-40); MCH 25.8 pg (25.7-33.7); MCHC 32.3 g/dl (32.0-36.0); MEAN CELL VOLUME 79.8 fl (80-96); MEAN PLT VOLUME 8.3 fl (7.5-11.1); MONO % 3.4 % (3.8-10.2); NEUT % 90.4 % (42.8-82.8); PLATELET COUNT 313 10^3/uL (134-434); RBC 4.63 M/mm3 (3.60-5.2); RDW 16.2 % (11.6-15.6); WHITE BLOOD COUNT 5.1 K/mm3 (4.0-10.0)
[2023-08-10 12:45] LABS: CALCIUM 8.5 mg/dL (8.5-10.1)
[2023-08-10 12:46] LABS: ALBUMIN 3.1 g/dl (3.4-5.0); BLOOD UREA NITROGEN 12.6 mg/dL (7-18)
[2023-08-10 12:50] LABS: BILIRUBIN,TOTAL 0.5 mg/dL (0.2-1); TOT PROT 7.6 g/dl (6.4-8.2)
[2023-08-10 16:17] VITALS: BP 120/76; PULSE 77; RESP 18; TEMP 98
== END 2023-08-10 16:18 | disposition home or self-care (01) ==
LOC: JER 10:50
PROC: 3E033GC Introduction of Other Therapeutic Substance into Peripheral Vein, Percutaneous Approach (ICD-10-PCS; principal; 2023-08-10)
PROC: 3E033NZ Introduction of Analgesics, Hypnotics, Sedatives into Peripheral Vein, Percutaneous Approach (ICD-10-PCS; 2023-08-10)
PROC: 3E033GC Introduction of Other Therapeutic Substance into Peripheral Vein, Percutaneous Approach (ICD-10-PCS; 2023-08-10)
DX: R11.2 Nausea with vomiting, unspecified (principal); R19.7 Diarrhea, unspecified; R50.9 Fever, unspecified; Z20.822 Contact with and (suspected) exposure to COVID-19
CPT/HCPCS: 0241U-QW; 36415; 80053; 83690; 85025; 99284-25

== ENCOUNTER 2024-06-03 00:51 | Emergency (ER) | payer OTHER ==
[2024-06-03 00:59] VITALS: BP 106/72; PULSE 66; RESP 18; TEMP 98.6; BMI 29.2
[2024-06-03] MEDS ORDERED: IBUPROFEN 400 MG TABLET (FP) PO ONE (01:14)
[2024-06-03] MEDS: IBUPROFEN 400 MG TABLET (FP) PO ONE (01:15)
[2024-06-03 01:48] LABS: THROAT:GRP A STREP NOT DETECTED (NOTDETECTED)
== END 2024-06-03 01:53 | disposition home or self-care (01) ==
LOC: JER 00:51
DX: J02.9 Acute pharyngitis, unspecified (principal); R04.2 Hemoptysis; Z20.822 Contact with and (suspected) exposure to COVID-19
CPT/HCPCS: 0241U-QW; 87651; 99283-25